=== PATIENT | female | born 1975 | race American Indian/Alaskan Native ===

== ENCOUNTER 2017-09-26 17:55 | Emergency (ER) | payer OTHER ==
[2017-09-26 18:18] VITALS: BP 130/91
== END 2017-09-26 19:45 | disposition left against medical advice (07) ==
LOC: ED 17:55
DX: Z04.1 Encounter for examination and observation following transport accident (principal); Z53.21 Procedure and treatment not carried out due to patient leaving prior to being seen by health care provider; V49.9XXA Car occupant (driver) (passenger) injured in unspecified traffic accident, initial encounter; Y93.89 Activity, other specified; Y99.8 Other external cause status; Y92.410 Unspecified street and highway as the place of occurrence of the external cause

== ENCOUNTER 2019-11-30 16:22 | Emergency (ER) | payer SELFPAY | END 2019-11-30 17:00 | disposition left against medical advice (07) | LOC: ED 16:22 | DX: M79.644 Pain in right finger(s) (principal); Z53.21 Procedure and treatment not carried out due to patient leaving prior to being seen by health care provider ==